=== PATIENT | male | born 1980 | race Caucasian/White ===

== ENCOUNTER 2022-05-17 11:34 | Outpatient (CLI) | payer OTHER, SELFPAY ==
--- NOTE | ~2022-05-17 | PE_ITS ---
EXAMINATION: PET skull to mid thigh DATE: 05/17/2022 15:35 INDICATION: Intra-abdominal and pelvic swelling, mass and lump. TECHNIQUE: Blood glucose level was 103 mg/dL. 10.932 mCi of 18-fluorodeoxyglucose (18-FDG) was admini stered i.v. Low dose computed tomography (CT) images were acquired from the base of the brain to the proximal thighs for attenuation correction and anatomic localization. Automated exposure control was employed. Dose-length product (DLP) was 1068 mGy-cm. Positron emission tomography (PET) images were a cquired in the same distribution. COMPARISON: None FINDINGS: Head/neck: There is increased activity in the pharynx, oral cavity, and major salivary glands without abnormal CT correlate, likely physiologic. There are no pathologically enlarged lymph nodes. Chest: The lungs demonstrate mild atelectasis. No pleural effusion. The heart size is normal. No cassi cardial effusion. Abdomen/pelvis/proximal thighs: The liver, gallbladder, spleen, pancreas, adrenal glands, and kidneys are normal. In the left para-aortic region, there is a 5.0 x 4.3 cm mass with maximum SUV of 15.5. T here is a right inguinal hernia containing fat. There are no dilated loops of bowel. The appendix is not visualized. There are no pathologically enlarged lymph nodes. There is no free intraperitoneal fl uid. There is bilateral sacroiliitis, which may be seen with ankylosing spondylitis or enteropathy as sociated arthritis. There is increased activity in bone marrow without abnormal CT correlate, likely bone marrow stimulation. IMPRESSION: 1. 5.0 x 4.3 cm mass with maximum SUV of 15.5 in left para-aortic region. The differential diagnosis includes lymphoma, sarcoma, neurogenic tumor, and pheochromocytoma. CT-guided biopsy is recommended. Reviewed, dictated and finalized at location A. FARMER IMPRESSION: 1. 5.0 x 4.3 cm mass with maximum SUV of 15.5 in left para-aortic region. The d ifferential diagnosis includes lymphoma, sarcoma, neurogenic tumor, and pheochr omocytoma. CT-guided biopsy is recommended.
[2022-05-17 12:19] LABS: Glucose Point of Care 103 mg/dl (65-105)
== END 2022-05-17 11:35 | disposition home or self-care (01) ==
PROVIDERS: PCP Internal Medicine; Visit Provider Internal Medicine
DX: R19.00 Intra-abdominal and pelvic swelling, mass and lump, unspecified site (principal); R10.2 Pelvic and perineal pain; R91.8 Other nonspecific abnormal finding of lung field
CPT/HCPCS: 78815; A9552

== ENCOUNTER 2022-05-29 09:16 | Outpatient (CLI) | payer OTHER, SELFPAY ==
[2022-05-26 13:36] VITALS: BMI 40.4
--- NOTE | 2022-05-26 13:37 | PC.NURSE ---
Pre Radiology instructions Report to the Outpatient Waiting Room, entrance under the green pavilion located off [facility], at time 0900 on date 05/29/22. Procedure Time: 1100. YOU MAY BE MONITORED AT HOSPITAL FOR UP TO 4 HOURS AFTER YOUR PROCEDURE. One visitor will be allowed to accompany the patient into the hospital. The visitor will be instructed to remain with patient at all times or leave the building due to restrictions. We will allow the visitor to come back to the postoperative area when patient is ready. NO children visitors allowed at this time. You and your visitor will be asked to self-screen and do not enter if you have any COVID symptoms. A mask is required within the hospital. Patients are to have no food or drink 8 hours prior to procedure time (PER RADIOLOGY INSTRUCTION SHEET) Driving will be restricted after the procedure, you must have a person to drive you home. Labs will be drawn in preop area and once reviewed, you will be taken to radiology area for procedure. When the procedure is completed, you will be taken to outpatient where you will be monitored for several hours. You may have one visitor in this area. Other than holding anti-coagulants, patient may take other medication(s) as scheduled. Prior to your appointment date patients are instructed to hold anti-coagulants after discussing with ordering provider to stop. If unable to discontinue anti-coagulants please notify radiologist. No aspirin or warfarin (Coumadin) for 7 days prior to the procedure. No clopidogrel (Plavix), ticagrelor (Brilinta), prasugrel (Effient) or dabigatran (Pradaxa) for 5 days prior to the procedure. No rivaroxaban (Xarelto), apixaban (Eliquis), dipyridamole (Aggrenox or Persantine) or cilostazol (Pletal) for 2 days prior to the procedure. Medications to discontinue per physician: N/A Date to take last dose: N/A Please leave all valuables, including medications, at home the day of procedure. The hospital will not accept responsibility for valuables. Wear comfortable, loose fitting clothing. Follow any additional instructions given to you from ordering provider. Telephone instructions given to PT - NATALIIA VILLANUEVA and asked if any additional questions and then verbalized understanding. Patient advised to call scheduling provider office or registration scheduling [phone] if any additional questions.
[2022-05-29] VITALS (12 sets, daily range): BP systolic 115–135; BP diastolic 50–82; PULSE 70–85; RESP 18–20; TEMP 37.2; O2SAT 97–100
--- NOTE | ~2022-05-29 | CT_ITS ---
EXAMINATION: CT biopsy abdomen percutaneous DATE: 05/29/2022 12:12 INDICATION: Left retroperitoneal mass TECHNIQUE: The procedure including the risks and benefits was discussed with the patient. Risks discu ssed included bleeding, allergic reaction and infection. The patient understood the risks and agreed to proceed. The skin overlying the left paravertebral upper lumbar region was prepped and draped in usual sterile fashion. Anesthetic was administered with 1% lidocaine subcutaneously. 15 mL Omnipaque -350 intravenous contrast was administered to excreted contrast to confirm the location of the ureter s. A 16 gauge outer needle was advanced under CT guidance to the lesion of interest. An 18 gauge core biopsy needle was then advanced into the lesion. 10 core biopsy specimens were obtained, 7 placed in RPMI media and 3 in formalin. The outer needle was removed and the entry site was cleaned and dresse d. There were no immediate complications. The dose-length product was 203.56 mGy-cm. FINDINGS: CT images demonstrate the outer needle tip at the posterior margin of a 4.8 x 4.4 cm left r etroperitoneal mass. IMPRESSION: 1. Successful CT-guided biopsy of a 4.8 x 4.4 cm left retroperitoneal mass. Reviewed, dictated and finalized at location A. SCIENCES MANAGER
[2022-05-29 10:08] LABS: Mean Platelet Volume 9.9 fl (7.4-10.4); Platelet Count Result 299 k/mm3 (150-375)
--- NOTE | 2022-05-29 10:10 | SUR.PREOP ---
CT notified patient is ready, labs are pending.
[2022-05-29] MEDS: SODIUM CHLORIDE 0.9% IV 1,000 ML 30 ML IV CONT (10:17)
[2022-05-29 10:19] LABS: Glucose Point of Care 116 mg/dl (65-105)
[2022-05-29 10:20] LABS: Prothrombin Time 13.1 Seconds (11.1-14.7)
== END 2022-05-29 15:37 | disposition home or self-care (01) ==
PROVIDERS: Radiology Diagnostic Radiology; PCP Internal Medicine; Visit Provider Radiology Diagnostic Radiology
PROC: BW20ZZZ Computerized Tomography (CT Scan) of Abdomen (ICD-10-PCS; CPT 77012; principal; 2022-05-29 11:00)
DX: R19.00 Intra-abdominal and pelvic swelling, mass and lump, unspecified site (principal)
CPT/HCPCS: 36415; 49180; 77012; 82948; 85049; 85610; 88184; 88305; 88313; 88342; 88365; J7030; Q9967

== ENCOUNTER 2022-07-26 15:46 | Outpatient (CLI) | payer OTHER, SELFPAY ==
[2022-07-26 16:15] LABS: Alanine Aminotransferase 42 U/L (6-50); Albumin Level 4.5 g/dL (3.5-5.1); Alkaline Phosphatase 82 U/L (38-126); Anion Gap 9 mmol/L (8-16); Aspartate Amino Transferase 32 U/L (17-59); Bilirubin,Total 0.3 mg/dL (0.2-1.3); Blood Urea Nitrogen 17 mg/dL (9-20); Calcium 9.4 mg/dL (8.4-10.2); Carbon Dioxide 29 mmol/L (22-30); Chloride 101 mmol/L (98-107); Cholesterol 165 mg/dL (0-200); Estimated Glomerular Filt Rate > 60; Glucose 85 mg/dL (65-110); HDL Direct 36 mg/dL; Potassium 3.9 mmol/L (3.4-5.0); Sodium 139 mmol/L (137-145); Triglycerides 233 mg/dL (<150)
[2022-07-26 16:24] LABS: LDL Cholesterol Direct 88 mg/dL
[2022-07-27 12:47] LABS: Hemoglobin A1C 5.7 % (<5.7)
[2022-07-30 12:27] LABS: Testosterone Total 165 ng/dL (250-1100)
== END 2022-07-26 15:47 | disposition home or self-care (01) ==
LOC: ANHLAB 15:49
PROVIDERS: PCP Internal Medicine; Visit Provider Internal Medicine
DX: E29.1 Testicular hypofunction (principal); I10 Essential (primary) hypertension; R73.03 Prediabetes
CPT/HCPCS: 36415; 80053; 80061; 83036; 84403

== ENCOUNTER 2022-09-25 10:30 | Emergency (ER) | payer OTHER, SELFPAY ==
--- NOTE | ~2022-09-25 | XR_ITS ---
Left Shoulder Technique: AP and scapular Y views were obtained. Clinical History: Pain Findings: No fracture or dislocation is seen. Osseous alignment is anatomic. The glenohumeral and acr omioclavicular joint spaces are preserved. Soft tissues are unremarkable. Impression: Unremarkable left shoulder radiographs. Reviewed, dictated and finalized at [facility]. Impression: Unremarkable left shoulder radiographs.
[2022-09-25 10:40] VITALS: BP 144/93; PULSE 83; RESP 16; TEMP 36.3; O2SAT 98
--- NOTE | 2022-09-25 10:53 | ED.UPPEXIN ---
HPI - Extremity Injury (Upper) General Stated Complaint: INJURED SHOULDER Time Seen by Provider: 09/25/22 10:53 Source: patient Mode of arrival: ambulatory Limitations: no limitations History of Present Illness HPI narrative: 42-year-old male presents with complaint of left shoulder pain. Patient reports this morning he lifted a 1 gal bucket and had sudden pain to left shoulder. Is not able to move left shoulder since injury. Reports pain shoots down into left hand. Distal neurovascularly intact. All systems reviewed and negative except as noted above. Related Data Home Medications Medication Instructions Recorded Confirmed divalproex 500 mg tablet,delayed 1,500 mg PO .hs 03/02/22 07/27/22 release guselkumab 100 mg/mL subcutaneous 100 mg subcut .q 2 months 03/02/22 07/27/22 auto-injector (Tremfya) Allergies Allergy/AdvReac Type Severity Reaction Status Date / Time No Known Allergies Allergy Unverified 09/25/22 11:00 Review of Systems Review of Systems: CONSTITUTIONAL: Denies fever, chills, or sweats. EYES: Denies visual changes, redness, or discharge. ENT: Denies rhinorrhea, congestion, sore throat, or otalgia. CARDIOVASCULAR: Denies chest pain, palpitations, or edema. RESPIRATORY: Denies cough or dyspnea. GASTROINTESTINAL: Denies abdominal pain, nausea, vomiting, or diarrhea. GENITOURINARY: Denies dysuria or hematuria. SKIN: Denies rash or itching. MUSCULOSKELETAL: Reports left shoulder pain. NEUROLOGIC: Denies headache, numbness, or weakness. PSYCHIATRIC: Denies anxiety or depression. All other systems reviewed are negative, except as documented in HPI. [facility] Past Medical History Medical History (Updated 09/25/22 @ 11:02 by Radha Zarate NP) Benign essential hypertension Bipolar 1 disorder Body mass index (BMI) 40.0-44.9, adult Depression Elevated LFTs Encounter to establish care Fatty liver Follow up Gallbladder sludge History of kidney stones Hyperlipidemia Long COVID Nausea and vomiting On custodial drug therapy CONNOR on CPAP Pre-diabetes Proteinuria Psoriasis Schwannoma Testicular hypofunction Social History Social History Smoking status: Never smoker Second hand tobacco smoke exposure: No Lack of Transportation: No Lack of Food: Never True Current Housing: I Have Housing Concerned About Future Housing: No Difficulty Paying Gas/Electric Bills: No Difficulty Paying for Meds: No Currently Unemployed: No Education: Master's Degree or Higher Difficulty w/ Childcare or Family Care: No Living arrangements: with family Gender identity (if verbalized by the patient): Male Comments At time of signature, agree with nursing past medical, surgical, social and family history. There is no relevant family history pertinent to the presenting complaint. Exam Narrative: GENERAL: This is a well-nourished, well-developed patient, in no apparent distress. HEAD: normocephalic, atraumatic. EYES: PERRL. Sclera clear/white. Vision is grossly intact. EARS: External ears normal NOSE: External nose normal NECK: Neck supple, non-tender without lymphadenopathy, masses or thyromegaly. CARDIOVASCULAR: Regular rate and rhythm without murmurs, gallops, or rubs. RESPIRATORY: Clear to auscultation. Breath sounds equal bilaterally. No wheezes, rales, or rhonchi. SKIN: warm, Dry, intact with no suspicious lesions or rash, good texture and turgor. NEURO: awake, alert, and oriented to person, place and time. There were no obvious focal neurologic abnormalities. EXTREMITIES: Decreased range of motion to left shoulder. Able to flex to 30?. unable to perform drop arm test due to pain. distal NV intact. Course Course Level of Care: Express Care Visit Vital Signs Vital signs: Vital Signs Temperature 36.3 C L 09/25/22 10:40 Pulse Rate 83 09/25/22 10:40 Respiratory Rate 16 09/25/22 10:40 Blood Pressure 144/
== END 2022-09-25 11:10 | disposition home or self-care (01) ==
PROVIDERS: Emergency Provider Nurse Practitioner Family; PCP Internal Medicine
DX: S46.912A Strain of unspecified muscle, fascia and tendon at shoulder and upper arm level, left arm, initial encounter (principal); I10 Essential (primary) hypertension; E78.5 Hyperlipidemia, unspecified; X50.0XXA Overexertion from strenuous movement or load, initial encounter
CPT/HCPCS: 73030; 99213; A4565; G0463

== ENCOUNTER 2024-05-27 08:37 | Outpatient (CLI) | payer BC, SELFPAY ==
[2024-05-27 09:03] LABS: Basophils Absolute Auto 0.1 K/mm3 (0.0-0.1); Basophils Percent Auto 0.6 % (0.2-1.2); Eosinophils Absolute Auto 0.4 K/mm3 (0-0.3); Eosinophils Percent Auto 3.9 % (0-4.4); Hematocrit 42.3 % (42.0-52.0); Hemoglobin 13.9 g/dL (14.0-18.0); Immature Granulocyte Absolute 0.03 K/mm3 (0.00-0.031); Immature Granulocyte Percent A 0.3 % (0-0.5); Lymphocytes Absolute Auto 3.56 K/mm3 (0.9-3.2); Lymphocytes Percent Auto 33.3 % (18.3-44.2); Mean Corpuscular HGB Conc 32.9 g/dl (32-36); Mean Corpuscular Hemoglobin 29.6 pg (26-34); Mean Platelet Volume 9.9 fl (7.4-10.4); Monocytes Absolute Auto 1.3 K/mm3 (0.1-0.6); Neutrophils Absolute Auto 5.4 K/mm3 (1.3-6.7); Neutrophils Percent Auto 49.9 % (45.5-73.1); Platelet Count Result 317 k/mm3 (150-375); Red Cell Distribution Width 13.2 % (11.5-14.5); White Blood Count 10.7 K/mm3 (4.5-10.0)
[2024-05-27 09:13] LABS: Alanine Aminotransferase 38 U/L (6-50); Albumin Level 4.4 g/dL (3.5-5.1); Alkaline Phosphatase 76 U/L (38-126); Anion Gap 8 mmol/L (4-12); Aspartate Amino Transferase 32 U/L (17-59); Bilirubin,Total 0.2 mg/dL (0.2-1.3); Blood Urea Nitrogen 15 mg/dL (9-20); Calcium 9.9 mg/dL (8.4-10.2); Carbon Dioxide 30 mmol/L (22-30); Chloride 102 mmol/L (98-107); Cholesterol 145 mg/dL (0-200); Estimated Glomerular Filt Rate > 60; Glucose 111 mg/dL (65-110); HDL Direct 33 mg/dL; Potassium 3.7 mmol/L (3.4-5.0); Sodium 140 mmol/L (137-145); Triglycerides 192 mg/dL (<150)
[2024-05-27 09:24] LABS: LDL Cholesterol Direct 76 mg/dL
[2024-05-27 10:18] LABS: Free T4 Free Thyroxine 0.79 ng/mL (0.78-2.19); Vitamin D 25 Hydroxy 37.8 ng/mL
[2024-05-28 14:33] LABS: Insulin Level Total 61.3 uIU/mL
[2024-05-30 22:28] LABS: Testosterone Total 105 ng/dL (250-1100)
== END 2024-05-27 08:38 | disposition home or self-care (01) ==
PROVIDERS: PCP Internal Medicine; Visit Provider Internal Medicine
DX: Z00.00 Encounter for general adult medical examination without abnormal findings (principal); I10 Essential (primary) hypertension; R73.03 Prediabetes; E55.9 Vitamin D deficiency, unspecified; E29.1 Testicular hypofunction; Z79.899 Other long term (current) drug therapy
CPT/HCPCS: 36415; 80053; 80061; 82306; 83036; 83525; 84403; 84439; 84443; 85025

== ENCOUNTER 2024-12-09 13:33 | Outpatient (CLI) | payer BC, SELFPAY ==
--- OUTSIDE RECORDS SUMMARY | 2024-12-09 13:44 | XMS_ITS | Clinical Summary ---
Author Organization [facility] Charly Rosales Address [address] [place] [address] Phone Care Team Providers Care Log Processor Operator Name Role Phone Enmanuel Rai MD Primary Care Provider [phone] Allergies Active Allergy Reactions Criticality Noted Date Comments Aripiprazole Other (See Comments) High 11/19/2020 Medications hydrOXYzine HCL (ATARAX) 25 mg tablet Take 1 Tablet (25 mg) by mouth every 6 hours as needed for Anxiety. 45 Tablet 1 Active clonazePAM (KlonoPIN) 1 mg tablet Take 1 mg by mouth 3 times daily as needed. Active quetiapine fumarate (QUETIAPINE ORAL) Take by mouth. Active venlafaxine HCl (VENLAFAXINE ORAL) Take by mouth. Active divalproex (DEPAKOTE) 125 mg Tablet, Delayed Release (E.C.) Take 125 mg by mouth 3 times daily. Active atorvastatin (LIPITOR) 40 mg tabletIndications:M ixed hyperlipidemia Take 1 Tablet (40 mg) by mouth daily at bedtime. 90 Tablet 3 2 Active lisinopril-hydroCHL OROthiazide (ZESTORETIC) 20-25 mg tabletIndications:H ypertension, essential Take 1 Tablet by mouth 2 times daily. 180 Tablet 3 2 Active cpap medical deviceIndications:O bstructive sleep apnea syndrome,Hypersomno lence,Hypertension, essential APAP @ 6-15 cwp with heated humidifier. Length of need:99 months; fit for mask with headgear. Mask/Headgea r as needed every 3- 6 months; 1 cushion as needed every 3-6 months; Tubing heated, 1 as needed every 6 months, water chamber 1 as needed every 6 months, chin strap 1 as needed every 6 months, filters disposable, 2 as needed every 3- 6 months, filters reusable 1 every 6 months. . 1 Each 2 Active CPAP / BIPAP suppliesIndications :CONNOR on CPAP Refit with medium Resmed N20 nasal mask 1 Each 2 Active Active Problems Patient Care Coordination No te Formatting of this note migh t be different from the original. DME: [facility] for CPAP Problem Noted Date Diagnosed Date OCD (obsessive compulsive disorder) 12/23/2020 Severe recurrent major depre ssion without psychotic features 12/23/2020 KAIT (generalized anxiety disorder) 12/23/2020 Retroperitoneal mass 04/08/2020 Hyperlipidemia 04/08/2020 Hepatic steatosis 04/08/2020 Prediabetes 04/08/2020 Overview (04/08/2020): 04/2020 - A1C 6.0 Obstructive sleep apnea syndrome 08/15/2018 Psoriasis vulgaris 08/15/2018 Hypertension, essential 08/15/2018 Anxiety SOB (shortness of breath) Drug-induced parkinsonism Hypersomnolence Immunizations Immunization Administration Dates Next Due (ADACEL/BOOSTRIX)(10 YR UP) TDAP VACCINE, 0.5ML, IM 02/06/2014 (SPIKEVAX) (12 YRS UP PRIMAR Y SERIES) COVID-19 VACCINE - MRNA-1273(PF) 100 MCG/0.5 ML IM SUSP 12/12/2020,11/14/2020 Influenza Seasonal Unspecified Formulation IM Influenza Vaccine Tri Rcmb 18+ PF IM 04/08/2014 Influenza, Unspecified Formulation 03/23/2020 Family History Medical History Relation Name Comments Hypertension Brother Cancer Father Hypertension Mother Relation Name Status Comments Brother Father Mother Alive Social History Tobacco Use Types Packs/Day Years Used Date Smoking Tobacco: Never Smokeless Tobacco: Never Alcohol Use Standard Drinks/Week Comments Not Currently 0 (1 standard drink = 0.6 oz pur e alcohol) Sex and Gender Information Value Date Recorded Sex Assigned at Not on file 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 Gender Identity Not on file Sexual Orientation Not on file Last Filed Vital Signs Vital Sign Reading Time Taken Comments Blood Pressure 118/88 06/06/2022 3:10 PM FEATHER BALER Pulse 80 06/06/2022 3:10 PM FEATHER BALER Temperature 35.9 C (96.6 F) 06/06/2022 3:10 PM FEATHER BALER Respiratory Rate 18 12/28/2020 8:09 AM CDT Oxygen Saturation 95% 06/06/2022 3:10 PM FEATHER BALER Inhaled Oxygen Concentration - - Weight 146.5 kg (323 lb) 06/06/2022 3:10 PM FEATHER BALER Height 188 cm (6' 2) 06/06/2022 3:10 PM FEATHER BALER Body Mass Index 41.47 06/06/2022 3:10 PM FEATHER BALER Plan of Treatment Health Maintenance Due Date Last Done Comments HEPATITIS B VACCINES (1 of 3 - 19+ 3-dose series) 01/27/1999 DTAP/TDAP/TD VACCINES (2 - Td or Tdap) 02/07/2024 02/06/2014 INFLUENZA VACCINE (#1) 2024 , 04/08/2014 COVID-19 Vaccine ( season) 2024 12/12/2020, 11/14/2020 HPV VACCINES Aged Out No longer eligi ble based on patient's age to complete this topic Insurance [facility] Advance Directives For more information, please contact: [phone] * Full Code (Latest Code Status on File) Date Activated Date Inactivated Comments 12/22/2020 9:08 PM 12/28/2020 3:49 PM Care Teams Log Processor Operator Relationship Specialty Start Date End Date Enmanuel Rai MD PCP - General Family Practice 08/15/18
--- OUTSIDE RECORDS SUMMARY | 2024-12-09 13:44 | XMS_ITS | Encounter Summary ---
Author Organization [facility] Address 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
--- OUTSIDE RECORDS SUMMARY | 2024-12-09 13:44 | XMS_ITS | Continuity of Care Document ---
Author Organization [facility] Address [address] [place] [address] Phone Care Team Providers Care Assignment Desk Editor Name Role Phone Holden Henley MD Unavailable Unavailable Allergies, Adverse Reactions, Alerts Substance Reaction Status Criticality No Known Allergies Active No Inform ation Medications Medication Instructions Dosage Effective Dates (start - stop) Status Comments lisinopril 10 mg tablet take 1 tablet by oral route every day 10 MG - Active Robaxin 500 mg tablet take 1 tablet by o ral route 3 times every day 500 MG - Active Naprosyn 500 mg tablet take 1 tablet by oral route 2 times every day with food 500 MG - Active atorvastatin 10 mg tablet take 1 tablet by oral route every day 10 MG - Active clindamycin HCl 300 mg capsule take 1 capsule by ORAL route every 8 hours for 10 days - Active Effexor XR 150 mg capsule,extended release take 1 capsule by oral route every day 150 MG - Active Xanax 2 mg tablet take 1 tablet by ora l route 3 times every day 2 MG - Active Procedures Procedure Date OFFICE/OUTPATIENT VISIT, [facility] Alcohol and/or drug screening 8 Advance Directives Directive Yes / No Effective Date File Name No Information Encounters Encounter Description Practice Location Reason(s) For Visit Diagnoses Date Provider Providers Copied on Encounter OFFICE/OUTPA TIENT VISIT, [facility] [address] [place], [place], [id number] , tel: [phone] Urgent Care local infection, medication refill (chief complaint) Body mass index (BMI) 38.0-38.9, adultHypertensionHyp erlipidemiaCelluliti s of scalpPain in left shoulderAdjustment disorderEncounter for screening for other disorder [address], [place], [place], [id number] , [place]. tel: [phone] Referring Provider: Holden Henley, [address], [place], [address] . tel:[phone] Family History Family Member Type Diagnosis Age At Onset No Information Payers Payer name Insurance type Covered libertarian ID Authoriza tion(s) No Information Social History Type Description Quantity Date Captured Comments Alcohol Use Details Unknown Caffeine Use Details Unknown Tobacco Use Status Never smoked tobacco 2017 Smoking Status Never smoker Non-Smoking Tobacco Use Details : No Details Available : No Details Available Sex Male Vital Signs Date / Time: Height Weight BMI Pulse Rate Blood Pressure Temperature Respiratory Rate Body Surface Area Head Circumference Head Circ. Percentile Wt./Danish. Percentile BMI percentile Pulse Ox Inhaled Ox 10:56 AM 74.00 in 136.985 kg (302.00 lbs) 38.7 7 kg/m eter (2) 87 /min 136/98 mm[Hg] 98.30 F 20 /min 2.67 meter(2) 96 % Chief Complaint And Reason For Visit From encounter dated '09/26/2017 10:30'. local infection, medication refill (chief complaint). Description: Several issues today:- Moved recently with significant heavy lifting, now with worsening left shoulder and upper arm pain with muscle spasms. Been using heat but not much better and hard to sleep at night, very irritable.- Needs refills of his Lisinopril and Atorvastatin, been out of both for a few months after losing his prior health insurance.- Notes flare of possible scalp MRSA, bilat temples. Hard to wear glasses. 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 Stressed due to the move,finances, starting grad school.- On Effexor and Xanax.- Denies fever, scalp lesion drainage/crusting /streaking/ulceration, other rash. Reason For Referral Reason For Referral No Information Plan Of Treatment Date Type Action Status Nutrition Recommendation Nutrition therap y completed History Of Present Illness Encounter Date Complaint History Of Prese nt Illness local infection, medication refi ll Several issues today:- Moved recently with significant heavy lifting, now with worsening left shoulder and upper arm pain with muscle spasms. Been using heat but not much better and hard to sleep at night, very irritable.- Needs refills of his Lisinopril and Atorvastatin, been out of both for a few months after losing his prior health insurance.- Notes flare of possible scalp MRSA, bilat temples. Hard to wear glasses. 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 Stressed due to the move, finances, starting grad school.- On Effexor and Xanax.- Denies fever, scalp lesion drainage/crusting/streaking/ulcerat ion, other rash. Functional Status Date Functional Assessmen t Pain Score 0/10 Instructions Date Instruction Additional Infor michelle Prescribed activity/ exercise education Related to Body mass index (BMI) 38.0-38.9, adult Assessments Type Assessment Date assessment Body mass index (BMI) 38.0-38.9, adult assessment Hypertension assessment Hyperlipidemia impression Consider MRSA. Unabl e to Rx Bactrim DS due to Lisinopril use. Clindamycin Rx. F/U with PCP. Return/call as needed. assessment Cellulitis of scalp impression Naprosyn and Robaxin Rx. Rest, heat/moist heat use, limited activity as tolerated. F/U with PCP. Return/call as needed. assessment Pain in left shoulder 8 impression Continue Effexor and Xanax, neither were refilled here today. F/U with PCP. assessment Adjustment disorder impression Lisinopril Rx. F/U with PCP. Ret urn/call as needed. impression Atorvastatin Rx. F/U with PCP. R eturn/call as needed. assessment Encounter for screening for othe r disorder Mental Status Date Cognitive Assessment Orientation - [place] ed to time, place, person, situation. Patient Care Teams Name Effective Dates (start - stop) Status Members No Information
--- OUTSIDE RECORDS SUMMARY | 2024-12-09 13:44 | XMS_ITS | Clinical Summary ---
Author Organization [facility] Address [address] [address] Care Team Providers Care Scalp Treatment Operator Name Role Phone Oj Smith MD Primary Care Provider [phone] Allergies Active Allergy Reactions Criticality Noted Date Comments Aripiprazole Other (See comments) High 11/19/2020 Patient stated that it didn't work Medications venlafaxine XR (EFFEXOR XR) 150 mg 24 hr capsule take 2 capsule by oral route every day 0 0 09/25/19 15 Active clonazePAM (KlonoPIN) 1 mg tablet Take 1 tablet (1 mg total) by mouth 2 (two) times a day as needed 06/14/20 22 Active rosuvastatin (CRESTOR) 40 mg tablet Take 1 tablet (40 mg total) by mouth nightly 05/31/20 22 Active valsartan-hydrochl orothiazide (DIOVAN-HCT) 320-12.5 mg per tablet Take 1 tablet by mouth daily 05/31/20 22 Active metFORMIN (GLUCOPHAGE) 500 mg tablet Take 2 tablets (1,000 mg total) by mouth 2 (two) times a day 05/31/20 22 Active divalproex ER (DEPAKOTE ER) 500 mg 24 hr tablet Take 3 tablets (1,500 mg total) by mouth nightly 11/02/19 23 Active topiramate (TOPAMAX) 25 mg tablet Take 1 tablet (25 mg total) by mouth 2 (two) times a day 11/02/19 23 Active guselkumab (Tremfya) 100 mg/mL auto-injector subcutaneous syringe Inject under the skin Every 2 months Active acetaminophen 500 mg capsuleIndications :Pain Take 2 capsules (1,000 mg total) by mouth every 6 (six) hours 50 tablet 11/14/19 23 Active cyclobenzaprine (FLEXERIL) 10 mg tablet Take 1 tablet (10 mg total) by mouth 3 (three) times a day for 10 days 30 tablet 11/14/19 23 Active gabapentin (NEURONTIN) 300 mg capsule Take 1 capsule (300 mg total) by mouth 3 (three) times a day 90 capsule 11/14/19 23 Active ondansetron ODT (ZOFRAN-ODT) 4 mg disintegrating tablet Take 1 tablet (4 mg total) by mouth every 8 (eight) hours as needed for nausea or vomiting 20 tablet 11/14/19 23 Active polyethylene glycol (MIRALAX) 17 gram packetIndications: constipation Take 1 packet (17 g total) by mouth daily 30 packet 11/15/19 23 Active senna-docusate (PERICOLACE) 8.6-50 mg Take 1 tablet by mouth 2 (two) times a day 60 tablet 11/14/19 23 Active oxyCODONE (ROXICODONE) 5 mg immediate release tabletIndications: Pain Take 1 tablet (5 mg total) by mouth every 3 (three) hours as needed for pain 20 tablet 11/14/19 23 Active ALPRAZolam (XANAX) 0.5 mg tablet Take 1 tablet (0.5 mg total) by mouth once for 1 dose Bring with you to MRI appointment 1 tablet 02/19/20 24 Active Active Problems Problem Noted Date Diagnosed Date Schwannoma 12/13/2022 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 OCD (obsessive compulsive disorder) 12/23/2020 11/03/2022 Severe recurrent major depre ssion without psychotic features 12/23/2020 11/03/2022 KAIT (generalized anxiety disorder) 09/17/2020 11/03/2022 NAFLD (nonalcoholic fatty liver disease) 021 11/03/2022 Class 2 obesity in adult 09/17/2020 023 Prediabetes 04/08/2020 11/03/2022 Overview (11/03/2022): 04/2020 - A1C 6.0 04/2020 - A1C 6.0 Hyperlipidemia 04/08/2020 11/03/2022 Primary hypertension 08/15/2018 11/03/2022 Obstructive sleep apnea syndrome 08/15/2018 11/03/2022 Encounters Date Type Department Care Team Description 10/06/2024 9:45 AM CDT Office Visit [facility] Surgery [address] [address] Rusty Montez MD Retroperitoneal tumor (Primary Dx) 10/03/2024 Telephone [facility] Surgery [address] [address] Janet Herman RN 09/10/2024 7:58 AM CIGAR PACKER - 09/10/2024 11:59 PM CIGAR PACKER Hospital Encounter [facility] [address] [place] [address] Diagnosis unknown Discharge Disposition: Discharge to home or self care 09/10/2024 7:53 AM CIGAR PACKER - 09/10/2024 11:59 PM CIGAR PACKER Hospital Encounter [facility] ([facility] [address] [place] [id number] Diagnosis unknown Discharge Disposition: Discharge to home or self care from Last 3 Months Immunizations Immunization Administration Dates Next Due Influenza, Trivalent, Recomb inant, Egg Free, Preservative Free, Antibiotic Free, IM (FLUBLOK) 04/08/2014 Surgical History Surgery Date Site/Laterality Comments BIOPSY ABDOMEN RETROPERITONEAL 04/29/2014 N/A Medical History Medical History Date Comments Hypertension Anxiety disorder Hepatic steatosis Gallbladder sludge Kidney stones Hyperlipidemia Long COVID CONNOR on CPAP Psoriasis Family History Medical History Relation Name Comments Brain cancer Father Ovarian cancer Mother Relation Name Status Comments Father Mother Social History Tobacco Use Types Packs/Day Years Used Date Smoking Tobacco: Never Passive Smoke Exposure: Past Smokeless Tobacco: Never Tobacco Cessation:Counseling Given: Not Answered Alcohol Use Standard Drinks/Week Comments No 0 (1 standard drink = 0.6 oz pur e alcohol) AUDIT-C Answer Date Recorded Q1: How often do you have a drink containing alcohol? Never 11/10/2022 Q2: How many drinks containi ng alcohol do you have on a typical day when you are drinking? Patient does not drink Frequency of Binge Drinking Not on file 11/2022 Personal Safety Answer Date Recorded Have you ever been in or are you currently in a harmful physical or emotional relationship or is someone making you feel afraid or unsafe? Denies 11/10/2022 Sex and Gender Information Value Date Recorded Sex Assigned at Not on file Legal Sex Male 9:34 AM CIGAR PACKER Gender Identity Not on file Sexual Orientation Not on file Obstetrics History Last Filed Vital Signs Vital Sign Reading Time Taken Comments Blood Pressure 137/93 10/06/2024 10:20 AM CDT Pulse 93 10/06/2024 10:20 AM CDT Temperature 36.2 C (97.2 F) 10/06/2024 10:20 AM CDT Respiratory Rate 18 10/06/2024 10:2 0 AM CDT Oxygen Saturation 98% 10/06/2024 10: 20 AM CDT Inhaled Oxygen Concentration - - Weight 138.2 kg (304 lb 11.2 oz) 2024 10:20 AM CDT Height 185.1 cm (6' 0.87) 10/06/2024 1 0:20 AM CDT Body Mass Index 40.34 10/06/2024 10:20 AM CDT Plan of Treatment Health Maintenance Due Date Last Done Comments Depression Screening 1980 Hepatitis C Screening 1980 Varicella Vaccines (1 of 2 - 13+ 2-dose series) 01/27/1993 Hepatitis B Screening 01/27/1998 Regular Well Visit/Exam 18-64 01/27/1998 Pneumococcal vaccine <65 (1 of 2 - PCV) 01/27/1999 DTaP/Tdap/Td Vaccine (2 - Td or Tdap) 02/07/2024 02/06/2014 Covid-19 Vaccine ( - season) 2024 03/27/2022, 12/12/2020, 11/14/2020 Influenza Vaccine (Season Ended) 2025 03/27/2022, 04/10/2020, 04/10/2020, Additional history exists HPV Vaccines Aged Out No longer eligi ble based on patient's age to complete this topic Procedures Procedure Name Priority Date/Time Associated Diagnosis Comments MR BODY OUTSIDE CONSULT Routine 09/10/2024 7:58 AM CIGAR PACKER Diagnosis unknown MR BODY OUTSIDE CONSULT Routine 09/10/2024 7:54 AM CIGAR PACKER Diagnosis unknown from Last 3 Months Results * MR Body Outside Consult (09/10/2024 7:58 AM CIGAR PACKER) Anatomical Region Laterality Modality Body N/A Magnetic Resonan ce 09/10/2024 11:0 4 AM CIGAR PACKER Impressions 09/11/2024 3:13 PM CIGAR PACKER 1. Changes of left retroperitoneal mass resection without evidence of recurrence. 2. 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 The findings, conclusions and recommendations within this report do not replace the initial findings, conclusions and recommendations made at the facility where the study was performed based upon the imaging and clinical condition at that time. Comparison with the prior report and clinical history is necessary. The provided images may or may not represent the [place] source data set and thus may contain changes that may lower the accuracy of this second-opinion interpretation. Dictated by: Arianne Gaffney M.D. The radiology attending physician has personally reviewed this study, and had reviewed and/or edited this written report and agrees with it. Electronically signed by: Holden Cisse M.D. Narrative 09/11/2024 3:13 PM CIGAR PACKER EXAMINATION: RADIOLOGY CONSULTATION ON OUTSIDE IMAGING STUDY STUDY INITIALLY PERFORMED: 09/05/2024 at [facility]. TYPE OF STUDY: Multiple MR images of the abdomen and pelvis with and without intravenous contrast are provided at the time of this interpretation. CONTRAST ROUTE: Contrast was administered via the intravenous route. The protocol was adequate to address the clinical question. The outside final report was not available at the time of this second opinion interpretation. TYPE OF CONSULTATION: Consult on outside imaging study with images submitted through Outside Image Sharing Service DATE OF CONSULTATION: 09/10/2024 9:56 AM HISTORY: History of left retroperitoneal mass resection with pathology consistent with schwannoma COMPARISON: 09/11/2022 MR FINDINGS: Liver: Hepatic steatosis. No surface nodularity. No iron deposition. - Bile ducts: No intrahepatic or extrahepatic biliary duct dilatation. - Focal liver lesions: None - Vasculature: Patent hepatic and portal veins. Gallbladder: Normal Pancreas: Normal Spleen: Normal Adrenals: Normal Kidneys: Simple right renal cysts. Hemorrhagic/proteinaceous left renal cyst. No hydronephrosis. Bladder: Normal Reproductive organs: Prostate and seminal vessels appear normal. Other Findings: No pleural effusion. No suspicious lymphadenopathy. No suspicious osseous lesion. Postsurgical changes of left retroperitoneal mass resection. No evidence of recurrence. There is an enhancing nodule deep to the left diaphragmatic verena at L1 level, which measures 1.1 x 1.9 cm and is grossly similar in size to prior. Procedure Note Holden Cisse MD - 09/11/2024 EXAMINATION: RADIOLOGY CONSULTATION ON OUTSIDE IMAGING STUDY STUDY INITIALLY PERFORMED: 09/05/2024 at [facility]. TYPE OF STUDY: Multiple MR images of the abdomen and pelvis with and without intravenous contrast are provided at the time of this interpretation. CONTRAST ROUTE: Contrast was administered via the intravenous route. The protocol was adequate to address the clinical question. The outside final report was not available at the time of this second opinion interpretation. TYPE OF CONSULTATION: Consult on outside imaging study with images submitted through Outside Image Sharing Service DATE OF CONSULTATION: 09/10/2024 9:56 AM HISTORY: History of left retroperitoneal mass resection with pathology consistent with schwannoma COMPARISON: 09/11/2022 MR FINDINGS: Liver: Hepatic steatosis. No surface nodularity. No iron deposition. - Bile ducts: No intrahepatic or extrahepatic biliary duct dilatation. - Focal liver lesions: None - Vasculature: Patent hepatic and portal veins. Gallbladder: Normal Pancreas: Normal Spleen: Normal Adrenals: Normal Kidneys: Simple right renal cysts. Hemorrhagic/proteinaceous left renal cyst. No hydronephrosis. Bladder: Normal Reproductive organs: Prostate and seminal vessels appear normal. Other Findings: No pleural effusion. No suspicious lymphadenopathy. No suspicious osseous lesion. Postsurgical changes of left retroperitoneal mass resection. No evidence of recurrence. There is an enhancing nodule deep to the left diaphragmatic verena at L1 level, which measures 1.1 x 1.9 cm and is grossly similar in size to prior. IMPRESSION: 1. Changes of left retroperitoneal mass resection without evidence of recurrence. 2. 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 The findings, conclusions and recommendations within this report do not replace the initial findings, conclusions and recommendations made at the facility where the study was performed based upon the imaging and clinical condition at that time. Comparison with the prior report and clinical history is necessary. The provided images may or may not represent the [place] source data set and thus may contain changes that may lower the accuracy of this second-opinion interpretation. Dictated by: Arianne Gaffney M.D. The radiology attending physician has personally reviewed this study, and had reviewed and/or edited this written report and agrees with it. Electronically signed by: Holden Cisse M.D. Rusty Montez MD IMG MRI PROCEDURES F inal Result * MR Body Outside Consult (09/10/2024 7:54 AM CIGAR PACKER) Anatomical Region Laterality Modality Body N/A Magnetic Resonan ce 09/10/2024 11:0 4 AM CIGAR PACKER Impressions 09/11/2024 3:13 PM CIGAR PACKER 1. Changes of left retroperitoneal mass resection without evidence of recurrence. 2. 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 The findings, conclusions and recommendations within this report do not replace the initial findings, conclusions and recommendations made at the facility where the study was performed based upon the imaging and clinical condition at that time. Comparison with the prior report and clinical history is necessary. The provided images may or may not represent the [place] source data set and thus may contain changes that may lower the accuracy of this second-opinion interpretation. Dictated by: Arianne Gaffney M.D. The radiology attending physician has personally reviewed this study, and had reviewed and/or edited this written report and agrees with it. Electronically signed by: Holden Cisse M.D. Narrative 09/11/2024 3:13 PM CIGAR PACKER EXAMINATION: RADIOLOGY CONSULTATION ON OUTSIDE IMAGING STUDY STUDY INITIALLY PERFORMED: 09/05/2024 at [facility]. TYPE OF STUDY: Multiple MR images of the abdomen and pelvis with and without intravenous contrast are provided at the time of this interpretation. CONTRAST ROUTE: Contrast was administered via the intravenous route. The protocol was adequate to address the clinical question. The outside final report was not available at the time of this second opinion interpretation. TYPE OF CONSULTATION: Consult on outside imaging study with images submitted through Outside Image Sharing Service DATE OF CONSULTATION: 09/10/2024 9:56 AM HISTORY: History of left retroperitoneal mass resection with pathology consistent with schwannoma COMPARISON: 09/11/2022 MR FINDINGS: Liver: Hepatic steatosis. No surface nodularity. No iron deposition. - Bile ducts: No intrahepatic or extrahepatic biliary duct dilatation. - Focal liver lesions: None - Vasculature: Patent hepatic and portal veins. Gallbladder: Normal Pancreas: Normal Spleen: Normal Adrenals: Normal Kidneys: Simple right renal cysts. Hemorrhagic/proteinaceous left renal cyst. No hydronephrosis. Bladder: Normal Reproductive organs: Prostate and seminal vessels appear normal. Other Findings: No pleural effusion. No suspicious lymphadenopathy. No suspicious osseous lesion. Postsurgical changes of left retroperitoneal mass resection. No evidence of recurrence. There is an enhancing nodule deep to the left diaphragmatic verena at L1 level, which measures 1.1 x 1.9 cm and is grossly similar in size to prior. Procedure Note Holden Cisse MD - 09/11/2024 EXAMINATION: RADIOLOGY CONSULTATION ON OUTSIDE IMAGING STUDY STUDY INITIALLY PERFORMED: 09/05/2024 at [facility]. TYPE OF STUDY: Multiple MR images of the abdomen and pelvis with and without intravenous contrast are provided at the time of this interpretation. CONTRAST ROUTE: Contrast was administered via the intravenous route. The protocol was adequate to address the clinical question. The outside final report was not available at the time of this second opinion interpretation. TYPE OF CONSULTATION: Consult on outside imaging study with images submitted through Outside Image Sharing Service DATE OF CONSULTATION: 09/10/2024 9:56 AM HISTORY: History of left retroperitoneal mass resection with pathology consistent with schwannoma COMPARISON: 09/11/2022 MR FINDINGS: Liver: Hepatic steatosis. No surface nodularity. No iron deposition. - Bile ducts: No intrahepatic or extrahepatic biliary duct dilatation. - Focal liver lesions: None - Vasculature: Patent hepatic and portal veins. Gallbladder: Normal Pancreas: Normal Spleen: Normal Adrenals: Normal Kidneys: Simple right renal cysts. Hemorrhagic/proteinaceous left renal cyst. No hydronephrosis. Bladder: Normal Reproductive organs: Prostate and seminal vessels appear normal. Other Findings: No pleural effusion. No suspicious lymphadenopathy. No suspicious osseous lesion. Postsurgical changes of left retroperitoneal mass resection. No evidence of recurrence. There is an enhancing nodule deep to the left diaphragmatic verena at L1 level, which measures 1.1 x 1.9 cm and is grossly similar in size to prior. IMPRESSION: 1. Changes of left retroperitoneal mass resection without evidence of recurrence. 2. 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 The findings, conclusions and recommendations within this report do not replace the initial findings, conclusions and recommendations made at the facility where the study was performed based upon the imaging and clinical condition at that time. Comparison with the prior report and clinical history is necessary. The provided images may or may not represent the [place] source data set and thus may contain changes that may lower the accuracy of this second-opinion interpretation. Dictated by: Arianne Gaffney M.D. The radiology attending physician has personally reviewed this study, and had reviewed and/or edited this written report and agrees with it. Electronically signed by: Holden Cisse M.D. Rusty Montez MD IMG MRI PROCEDURES F inal Result from Last 3 Months Insurance [place] Advance Directives For more information, please contact: [phone] * Full Code (Latest Code Status on File) Date Activated Date Inactivated Comments 11/10/2022 11:19 AM 11/13/2022 6:59 PM Care Teams Scalp Treatment Operator Relationship Specialty Start Date End Date Oj Smith MD [address] [place] [address] PCP - General 02/06/22
--- OUTSIDE RECORDS SUMMARY | 2024-12-09 13:44 | XMS_ITS | Encounter Summary ---
Author Organization [facility] Address 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
--- OUTSIDE RECORDS SUMMARY | 2024-12-09 13:44 | XMS_ITS | Clinical Summary ---
Author Organization [facility] Address [address] [place] [address] Care Team Providers Care Screen Making Supervisor Name Role Phone Oj Smith MD Primary Care Provider [phone] Source Comments [facility],non-owned Affiliates and Associated Physician Practices is amultiple site organization consisting of ambulatory clinics and hospital sitesin [place], [place], [place] and [place]. This disclosure is being madepursuant to the Care Everywhere program and may not contain all information available regarding this patient. Last updated 18.[facility] Allergies Active Allergy Reactions Criticality Noted Date Comments Aripiprazole Neuropathy,Other High 11/19/2020 Medications * Be aware that medications may not be up to date on this document. Alwaysverify current medications with the patient. ALPRAZolam (XANAX) 2 MG tablet TAKE 1 TABLET BY MOUTH FOUR TIMES A DAY 1 Active hydrocortisone (HYTONE) 2.5 % cream APPLY A THIN LAYER TO THE AFFECTED AREA OF THE FACE AND GROIN 2 TIMES DAILY FOR UP TO 2 WEEKS 0 Active venlafaxine XR 24hr (EFFEXOR XR) 150 MG capsule Take 300 mg by mouth once daily 1 Active triamcinolone acetonide (KENALOG) 0.1 % cream APPLY A THIN LAYER 2 TIMES EVERY DAY TO THE AFFECTED AREA OF THE TRUNK AND EXTREMITIES X2 WEEKS 1 Active atorvastatin (Lipitor) 40 MG tablet Take 1 (one) tablet by mouth at bedtime 2 Active clonazePAM (KlonoPIN) 1 MG tablet Take 1 (one) tablet by mouth 2 times daily as needed anxiety [address] (Depakote) 500 MG tablet Take 1 (one) tablet by mouth 3 times daily 2 Active metFORMIN (Glucophage) 500 MG tablet Take 1 (one) tablet by mouth 2 times daily 2 Active rosuvastatin (Crestor) 40 MG tablet Take 1 (one) tablet by mouth once daily 2 Active testosterone (Androgel) 20.25 MG/ACT (1.62%) gel Apply 1 (one) Pump to affected area once daily 2 Active valsartan-hydr oCHLOROthiazid e (Diovan HCT) 320-12.5 MG tablet Take 1 (one) tablet by mouth once daily 2 Active mometasone (Elocon) 0.1 % creamIndicatio ns:Psoriasis vulgaris Apply to affected area on trunk BID PRN. 30 day supply. 45 g 5 2 Active guselkumab (Tremfya) 100 MG/ML prefilled penIndications :Plaque Psoriasis Inject 1 mL subcutaneously Every 8 Weeks Reasons: Plaque Psoriasis 1 mL 11 3 Active Active Problems Problem Noted Date Diagnosed Date Anxiety 11/19/2020 Chronic fatigue 09/17/2020 Episode of recurrent major depressive disorder 0 09/17/2020 NAFLD (nonalcoholic fatty liver disease) 021 Essential hypertension 09/17/2020 Class 2 obesity in adult 09/17/2020 Obstructive sleep apnea syndrome 09/17/2020 Mesenteric mass 09/17/2020 KAIT (generalized anxiety disorder) 09/17/2020 Altered mental status 09/17/2020 Hyperlipidemia 04/08/2020 Prediabetes 04/08/2020 Overview (11/19/2020): 04/2020 - A1C 6.0 Psoriasis vulgaris 08/15/2018 Immunizations Immunization Administration Dates Next Due INFLUENZA VACCINE, TRIV. (AF LURIA, FLUZONE TRIVALENT; 6MO+) (IIV3) 04/10/2020 INFLUENZA VACCINE 03/23/2020 INFLUENZA VACCINE, RECOM-MCDUFFIE, TRIV. (FLUBLOCK TRIVALENT; 18Y+) (RIV3) 04/08/2014 Family History Medical History Relation Name Comments None Known Brother None Known Father High Blood Pressure Mother Relation Name Status Comments Brother Alive Father Mother Alive Social History Tobacco Use Types Packs/Day Years Used Date Smoking Tobacco: Never Smokeless Tobacco: Never Alcohol Use Standard Drinks/Week Comments Not Currently 0 (1 standard drink = 0.6 oz pur e alcohol) AUDIT-C Answer Date Recorded Q1: How often do you have a drink containing alc ohol? 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 Gender Identity Not on file Sexual Orientation Not on file Last Filed Vital Signs Vital Sign Reading Time Taken Comments Blood Pressure 146/100 11/19/2020 1:34 PM CDT Pulse 110 11/19/2020 1:34 PM CDT Temperature 36.1 C (97 F) 11/19/2020 1:34 PM CDT Respiratory Rate 18 09/17/2020 2:07 PM CONVERTIBLE POWER SHOVEL OPERATOR Oxygen Saturation 96% 11/19/2020 1:34 PM CDT Inhaled Oxygen Concentration - - Weight 131.5 kg (290 lb) 11/19/2020 1:34 PM CDT Height 188 cm (6' 2) 11/19/2020 1:34 PM CDT Body Mass Index 37.23 11/19/2020 1:34 PM CDT Plan of Treatment Health Maintenance Due Date Last Done Comments HIV SCREENING 01/27/1995 HEPATITIS C SCREENING 01/23/1998 HEPATITIS B VACCINE (1 of 3 - 19+ 3-dose series) 01/27/1999 COVID-19 VACCINE (2023-2 5 season) 2024 12/12/2020, 11/14/2020 DEPRESSION SCREENING 07/09/2024 INFLUENZA VACCINE (Season Ended) 2025 04/10/2020, 03/23/2020, 04/08/2014 ZOSTER VACCINE (1 of 2) 01/27/2030 DTAP/TDAP/TD VACCINES Discontinued HIB VACCINE Aged Out No longer eligi ble based on patient's age to complete this topic HPV VACCINE Aged Out No longer eligi ble based on patient's age to complete this topic MENINGOCOCCAL (Group B) VACCINE SHARED DECISION-MAKING Aged Out No longer eligible based on patient's age to complete this topic MENINGOCOCCAL GROUPS A/C/Y/W VACCINE Aged Out No longer eligible based on patient's age to complete this topic PNEUMOCOCCAL VACCINE Aged Out No long er eligible based on patient's age to complete this topic Insurance [facility] [place] [place] Address: [facility] [id number] [place] [address] [employer] Care Teams Screen Making Supervisor Relationship Specialty Start Date End Date Oj Smith MD [address] [place] [id number] PCP - General 06/12/22
--- OUTSIDE RECORDS SUMMARY | 2024-12-09 13:44 | XMS_ITS | Referral Summary ---
Author Organization [facility] Address [address] [place] [address] Care Team Providers Care Security Expert Name Role Phone Oj Smith MD Primary Care Provider [phone] Encounters Date Type Department Care Team Description 10/06/2024 9:45 AM CDT Office Visit [facility] [address] [place] [address] [address] Rusty Montez MD Retroperitoneal tumor (Primary Dx) 10/03/2024 Telephone [facility] [address] [place] [address] [id number] Janet Herman RN 09/10/2024 7:58 AM OUTBOARD MOTORBOAT OPERATOR - 09/10/2024 11:59 PM OUTBOARD MOTORBOAT OPERATOR Hospital Encounter [facility] ([facility]) [address] [place] [address] Diagnosis unknown Discharge Disposition: Discharge to home or self care 09/10/2024 7:53 AM OUTBOARD MOTORBOAT OPERATOR - 09/10/2024 11:59 PM OUTBOARD MOTORBOAT OPERATOR Hospital Encounter [facility] ([facility]) [facility] [place] [address] Diagnosis unknown Discharge Disposition: Discharge to home or self care from Last 3 Months Allergies Active Allergy Reactions Criticality Noted Date [...] 11/03/2022 Obstructive sleep apnea syndrome 08/15/2018 11/03/2022 Immunizations Immunization Administration Dates Next Due Influenza, Trivalent, Recomb inant, Egg Free, Preservative Free, Antibiotic Free, IM (FLUBLOK) 04/08/2014 Social History Tobacco Use Types Packs/Day Years [...] on file Legal Sex Male 9:34 AM OUTBOARD MOTORBOAT OPERATOR Gender Identity Not on file Sexual [...] 10/06/2024 10:20 AM CDT Plan of Treatment Not on file Procedures Procedure Name Priority Date/Time Associated Diagnosis Comments MR BODY OUTSIDE CONSULT Routine 09/10/2024 7:58 AM OUTBOARD MOTORBOAT OPERATOR Diagnosis unknown MR BODY OUTSIDE CONSULT Routine 09/10/2024 7:54 AM OUTBOARD MOTORBOAT OPERATOR Diagnosis unknown from Last 3 Months Results * MR Body Outside Consult (09/10/2024 7:58 AM OUTBOARD MOTORBOAT OPERATOR) Anatomical Region Laterality Modality Body N/A Magnetic Resonan ce 09/10/2024 11:0 4 AM OUTBOARD MOTORBOAT OPERATOR Impressions 09/11/2024 3:13 PM OUTBOARD MOTORBOAT OPERATOR 1. Changes of left retroperitoneal mass resection [...] images may or may not represent the eyak source data set and thus may contain changes that may lower the accuracy of this second-opinion interpretation. Dictated by: Arianne Gaffney M.D. The radiology attending physician has personally reviewed this study, and had reviewed and/or edited this written report and agrees with it. Electronically signed by: Holden Cisse M.D. Narrative 09/11/2024 3:13 PM OUTBOARD MOTORBOAT OPERATOR EXAMINATION: RADIOLOGY CONSULTATION ON OUTSIDE IMAGING STUDY STUDY INITIALLY PERFORMED: 09/05/2024 at [facility]. TYPE OF STUDY: Multiple MR images of [...] IMAGING STUDY STUDY INITIALLY PERFORMED: 09/05/2024 at [facility]. TYPE OF STUDY: Multiple MR images of [...] images may or may not represent the eyak source data set and thus may contain changes that may lower the accuracy of this second-opinion interpretation. Dictated by: Arianne Gaffney M.D. The radiology attending physician has personally reviewed this study, and had reviewed and/or edited this written report and agrees with it. Electronically signed by: Holden Cisse M.D. Rusty Montez MD [facility] MRI PROCEDURES F inal Result * MR Body Outside Consult (09/10/2024 7:54 AM OUTBOARD MOTORBOAT OPERATOR) Anatomical Region Laterality Modality Body N/A Magnetic Resonan ce 09/10/2024 11:0 4 AM OUTBOARD MOTORBOAT OPERATOR Impressions 09/11/2024 3:13 PM OUTBOARD MOTORBOAT OPERATOR 1. Changes of left retroperitoneal mass resection [...] images may or may not represent the eyak source data set and thus may contain changes that may lower the accuracy of this second-opinion interpretation. Dictated by: Arianne Gaffney M.D. The radiology attending physician has personally reviewed this study, and had reviewed and/or edited this written report and agrees with it. Electronically signed by: Holden Cisse M.D. Narrative 09/11/2024 3:13 PM OUTBOARD MOTORBOAT OPERATOR EXAMINATION: RADIOLOGY CONSULTATION ON OUTSIDE IMAGING STUDY STUDY INITIALLY PERFORMED: 09/05/2024 at [facility]. TYPE OF STUDY: Multiple MR images of [...] IMAGING STUDY STUDY INITIALLY PERFORMED: 09/05/2024 at [facility]. TYPE OF STUDY: Multiple MR images of [...] images may or may not represent the eyak source data set and thus may contain changes that may lower the accuracy of this second-opinion interpretation. Dictated by: Arianne Gaffney M.D. The radiology attending physician has personally reviewed this study, and had reviewed and/or edited this written report and agrees with it. Electronically signed by: Holden Cisse M.D. us Rusty Montez MD IMG MRI PROCEDURES F inal Result from Last 3 Months Insurance [place] [facility] [place] Advance Directives For more information, please contact: [phone] * Full Code (Latest Code Status on File) Date Activated Date Inactivated Comments 11/10/2022 11:19 AM 11/13/2022 6:59 PM Care Teams Security Expert Relationship Specialty Start Date End Date Oj Smith MD [address] [employer] [place], [place] [id number] PCP - General 02/06/22
[2024-12-09 14:26] LABS: Basophils Absolute Auto 0.1 K/mm3 (0.0-0.1); Basophils Percent Auto 0.4 % (0.2-1.2); Eosinophils Absolute Auto 0.4 K/mm3 (0-0.3); Hematocrit 46.6 % (42.0-52.0); Hemoglobin 15.2 g/dL (14.0-18.0); Immature Granulocyte Absolute 0.04 K/mm3 (0.00-0.031); Immature Granulocyte Percent A 0.3 % (0-0.5); Lymphocytes Absolute Auto 3.98 K/mm3 (0.9-3.2); Lymphocytes Percent Auto 34.4 % (18.3-44.2); Mean Corpuscular HGB Conc 32.6 g/dl (32-36); Mean Corpuscular Hemoglobin 28.9 pg (26-34); Mean Corpuscular Volume 88.6 fl (80-100); Monocytes Absolute Auto 1.1 K/mm3 (0.1-0.6); Monocytes Percent Auto 9.9 % (2.6-8.5); Platelet Count Result 377 k/mm3 (150-375); Red Blood Count 5.26 M/mm3 (4.6-6.20); Red Cell Distribution Width 13.7 % (11.5-14.5); White Blood Count 11.6 K/mm3 (4.5-10.0)
[2024-12-09 14:59] LABS: Free T4 Free Thyroxine 0.88 ng/dL (0.78-2.19)
[2024-12-09 15:41] LABS: Alanine Aminotransferase 44 U/L (6-50); Albumin Level 4.8 g/dL (3.5-5.1); Alkaline Phosphatase 61 U/L (38-126); Anion Gap 11 mmol/L (4-12); Aspartate Amino Transferase 43 U/L (17-59); Bilirubin,Total 0.3 mg/dL (0.2-1.3); Blood Urea Nitrogen 16 mg/dL (9-20); Calcium 10.2 mg/dL (8.4-10.2); Carbon Dioxide 29 mmol/L (22-30); Chloride 101 mmol/L (98-107); Cholesterol 151 mg/dL (0-200); Estimated Glomerular Filt Rate > 60; Glucose 91 mg/dL (65-110); HDL Direct 33 mg/dL; Potassium 4.2 mmol/L (3.4-5.0); Sodium 141 mmol/L (137-145); Total Protein 8.6 g/dL (6.3-8.2); Triglycerides 118 mg/dL (<150)
[2024-12-09 15:53] LABS: LDL Cholesterol Direct 80 mg/dL
[2024-12-09 18:24] LABS: Hemoglobin A1C 5.5 % (<5.7)
[2024-12-12 12:29] LABS: NIL 0.01 IU/mL; Quantiferon TB Plus, 1T NEGATIVE (NEGATIVE); TB1-NIL 0.03 IU/mL; TB2-NIL 0.04 IU/mL
== END 2024-12-09 13:34 | disposition home or self-care (01) ==
PROVIDERS: PCP Internal Medicine; Referring Provider Internal Medicine; Visit Provider Registered Nurse
DX: E78.2 Mixed hyperlipidemia (principal); I10 Essential (primary) hypertension; R73.03 Prediabetes; Z79.899 Other long term (current) drug therapy; Z13.29 Encounter for screening for other suspected endocrine disorder; L40.0 Psoriasis vulgaris; L73.9 Follicular disorder, unspecified
CPT/HCPCS: 36415; 80053; 80061; 83036; 84439; 84443; 85025; 86480